=== PATIENT | male | born 1955 | race Caucasian/White ===

== ENCOUNTER 2021-10-24 08:41 | Outpatient (CLI) | payer OTHER ==
[2021-10-24 10:28] LABS: Hemoglobin 14.2 g/dL (13.5-17.5); Mean Corpuscular HGB CONC 36.2 g/dL (32.0-36.0); Mean Corpuscular Hemoglobin 32.8 pg (27.0-33.0); Mean Corpuscular Volume 90.5 fl (81.2-95.1); Mean Platelet Volume 9.1 fl (7.4-10.4); Platelet Count 188 10x3/uL (150-450); RBC Distribution Width 12.7 % (11.5-14.5); Red Blood Cell (RBC) Count 4.33 10x6/uL (4.32-5.72); White Blood Cell (WBC) Count 7.8 10x3/uL (3.5-10.5)
[2021-10-24 10:56] LABS: Anion Gap 16 mmol/L (10-20); BUN (Urea Nitrogen) 16 mg/dL (8.4-25.7); Calc. Creatinine Clearance 0 mL/min (70-130); Calcium 9.3 mg/dL (7.8-10.44); Carbon Dioxide 26 mmol/L (23-31); Chloride 104 mmol/L (98-107); Estimated GFR 80; Glucose 98 mg/dL (80-115); Potassium 4.2 mmol/L (3.5-5.1); Sodium 142 mmol/L (136-145)
== END 2021-10-24 08:42 | disposition home or self-care (01) ==
LOC: LABBT 08:41
PROVIDERS: ATTEND Neurological Surgery
DX: Z01.818 Encounter for other preprocedural examination (principal); M54.12 Radiculopathy, cervical region; Z20.822 Contact with and (suspected) exposure to COVID-19
CPT/HCPCS: 80048; 85027; 87811; 93005; 93010

== ENCOUNTER 2021-10-29 07:22 | Day surgery (SDC) | payer OTHER ==
[2021-10-27 11:53] VITALS: BMI 33.0
[2021-10-29] MEDS ORDERED: Thrombin 5000 UNITS/5 ML VIAL ONE (08:26)
[2021-10-29] MEDS ORDERED: fentaNYL Citrate/PF 100 MCG/2 ML SYRINGE ONE (08:39)
[2021-10-29] MEDS ORDERED: CEFAZOLIN 2 GM VIAL ONE ×2 (08:41→13:17)
[2021-10-29] MEDS ORDERED: Sodium Chloride 0.9% 100 ML ONE ×2 (08:41→13:17)
[2021-10-29] MEDS ORDERED: Lidocaine 1% PF 5 ML VIAL ONE (09:16)
[2021-10-29] MEDS ORDERED: Ondansetron PF 4 MG/2 ML Vial ONE (09:16)
[2021-10-29] MEDS ORDERED: Glycopyrrolate 0.2 MG/ML 5 ML SYRINGE ONE (09:16)
[2021-10-29] MEDS ORDERED: Rocuronium Bromide 10 MG/ML (10ML VIAL) ONE (09:16)
[2021-10-29] MEDS ORDERED: Phenylephrine 10 MG/ML VIAL ONE (09:16)
[2021-10-29] MEDS ORDERED: Dexamethasone 20 MG/5 ML VIAL ONE (09:16)
[2021-10-29] MEDS ORDERED: PROPOFOL 200 MG/20 ML VIAL ONE (09:16)
[2021-10-29] MEDS ORDERED: SUGAMMADEX SODIUM 200 MG/2 ML VIAL ONE (10:23)
[2021-10-29] MEDS ORDERED: PROPOFOL 0 ML ONE (10:23)
[2021-10-29] MEDS ORDERED: Tamsulosin HCl 0.4 MG CAP ONE (11:43)
== END 2021-10-29 14:37 | disposition home or self-care (01) ==
LOC: SDC 07:22
PROVIDERS: ATTEND Neurological Surgery
PROC: 0RG10A0 Fusion of Cervical Vertebral Joint with Interbody Fusion Device, Anterior Approach, Anterior Column, Open Approach (ICD-10-PCS; principal; 2021-10-29)
DX: M54.12 Radiculopathy, cervical region (principal); M48.02 Spinal stenosis, cervical region; I10 Essential (primary) hypertension; E78.5 Hyperlipidemia, unspecified; G20 Parkinson's disease; M19.90 Unspecified osteoarthritis, unspecified site; Z79.899 Other long term (current) drug therapy
CPT/HCPCS: 76000; C1713; J0690; J1100; J2370; J2405; J2704; J2710; J3490

== ENCOUNTER 2024-02-04 08:07 | Outpatient (CLI) | payer OTHER | END 2024-02-04 08:08 | disposition home or self-care (01) | LOC: SCSMRI 08:07 | PROVIDERS: ATTEND Psychiatry & Neurology Neurology | DX: M48.02 Spinal stenosis, cervical region (principal) | CPT/HCPCS: 36415; 72156; 82565 ==